=== PATIENT | male | born 1945 | race Caucasian/White ===

== ENCOUNTER 2018-03-01 08:45 | Day surgery (SDC) | payer MEDICARE ==
[~2018-03-01] VITALS: Ht 167.6 cm; Wt 104.3 kg
--- NOTE | ~2018-03-01 | OR ---
[facility] [address], [place] [address] Draft DATE OF OPERATION: 03/01/2018 SURGEON: Austyn Arana MD PREOPERATIVE DIAGNOSIS: Vocal cord lesions. POSTOPERATIVE DIAGNOSIS: Vocal cord lesions. PROCEDURE: Direct laryngoscopy, biopsy of vocal cord lesions. ANESTHESIA: General orotracheal, TRAIN DISPATCHER Griffin. PREOPERATIVE HISTORY: Mr. 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 He was taken to the operating for the above-mentioned procedure. OPERATIVE PROCEDURE AND FINDINGS: After informed consent, the patient was taken to the operating room, placed in supine position, where general orotracheal anesthesia was induced. The patient and procedure were verified. The patient was repositioned. Anterior commissure laryngoscope was used to visualize the hypopharynx and larynx. Everything appeared normal except for some very thin whitish material in the left anterior vocal cord up on to the ventricle. 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 Small mini cup biopsy forceps were used to biopsy both these lesions several pieces basically stripping the anterior lesion. These lesions were then sent to pathology separately in formalin, labeled left anterior and right posterior vocal cord lesions. Bleeding was minimal, stopped afterwards. Pharynx was suctioned clear of blood and secretions. The patient was then awakened, extubated, and transported to recovery room in good condition. COMPLICATIONS: No complications. BLOOD LOSS: Minimal. PATIENT NAME: TRES JURADO OPERATIVE REPORT DATE OF : 45 REPORT #: [id number] PHYSICIAN: AUSTYN ARANA MD PCP: NEYMAR KRISHNAN MD REPORT IS CONFIDENTIAL AND NOT TO BE RELEASED WITHOUT AUTHORIZATION [address] [place], [place] [address] Draft SPECIMEN: To pathology. DRAINS: No drains. Austyn Arana MD GC/JEROME /[id number] Copies: ~ PATIENT NAME: TRES JURADO OPERATIVE REPORT DATE OF : 45 REPORT #: [id number] PHYSICIAN: AUSTYN ARANA MD PCP: NEYMAR KRISHNAN MD REPORT IS CONFIDENTIAL AND NOT TO BE RELEASED WITHOUT AUTHORIZATION
[~2018-03-01 08:45] MED LIST: ALPRAZOLAM2 MG PO; ASPIR-LOW81 MG PO; COREG3.125 MG; COUMADIN1 MG PO; COUMADIN5 MG PO; DOXAZOSIN MESYLA2 MG PO; ENTRESTO 97 MG1 EACH PO; FLOMAX0.4 MG PO; FUROSEMIDE80 MG PO; LEVOTHYROXINE25 MCG PO; LIPITOR40 MG PO; NITROSTAT0.4 MG SL; NORCO 7.5-3251 EACH PO; PEPCID40 MG PO; POTASSIUM CHLO20 ME2 PO; QUINAPRIL HCL40 MG PO; SPIRIVA18 MCG INH; SYMBICORT 16010.2 GM INH; TOPROL XL50 MG PO; VENTOLIN HFA18 GM INH; WARFARIN SODIUM3 MG PO; ZYRTEC10 MG PO
--- NOTE | 2018-03-01 11:00 | NUR ---
PATIENT TO SURGERY.
--- NOTE | 2018-03-01 11:49 | NUR ---
03/01/18 1149 Isabela Hector 1134 PT ARRIVED NONAROUSABLE WITH ORAL AIRWAY IN PLACE. RESP EVEN AND UNLABORED. A-FIB AND IRREGULAR HEART RYTHUM PT BASELINE PER STORAGE BATTERY CHARGER. 1137 PT COUGHING AND REACTIVE TO TICTILE STIMULI, PT FOLLOWED COMMANDS TO OPEN MOUTH AND ORAL AIRWAY WAS REMOVED. SUCTION USED TO SUCTION OUT SMALL AMOUT OF DRAINAGE. 1140 PT DENIES NAUSEA AND PAIN, PT BACK TO SLEEP. 1148 PT ENCOURAGED TO DEEP BREATH AND COUGH. PT ASLEEP OFF AND ON, RESP EVEN AND UNLABORED.
--- NOTE | 2018-03-01 12:12 | NUR ---
PATIENT RETURNED TO DAY SURGERY. PATIENT IS AWAKE, DENIES PAIN OR NAUSEA, SIPPING ON WATER. SPOUSE IN ROOM WITH PATIENT. PATIENT IS SALINE LOCKED.
--- NOTE | 2018-03-01 12:56 | NUR ---
PATIENT DOING WELL, TOLERATING PO, NO PAIN OR NAUSEA. RIGHT WRIST SALINE LOCK D/C'D WITH CATHETER INTACT. DISCHARGE VITALS ARE STABLE, D/C INSTRUCTIONS GIVEN.
== END 2018-03-01 13:20 | disposition home or self-care (01) ==
LOC: OPS 08:45 → DS 08:45 → OPS 10:45
PROVIDERS: Otolaryngology
PROC: 0CBV8ZX Excision of Left Vocal Cord, Via Natural or Artificial Opening Endoscopic, Diagnostic (ICD-10-PCS; principal; 2018-03-01 10:45)
PROC: 0CBT8ZX Excision of Right Vocal Cord, Via Natural or Artificial Opening Endoscopic, Diagnostic (ICD-10-PCS; 2018-03-01 10:45)
DX: J37.0 Chronic laryngitis (principal); I25.10 Atherosclerotic heart disease of native coronary artery without angina pectoris; E78.00 Pure hypercholesterolemia, unspecified; I25.2 Old myocardial infarction; J44.9 Chronic obstructive pulmonary disease, unspecified; H91.90 Unspecified hearing loss, unspecified ear; Z95.5 Presence of coronary angioplasty implant and graft; Z88.8 Allergy status to other drugs, medicaments and biological substances; Z95.810 Presence of automatic (implantable) cardiac defibrillator; Z79.82 Long term (current) use of aspirin; Z79.899 Other long term (current) drug therapy
CPT/HCPCS: 71045; J0330; J1100; J2405; J2704; J2765; J3010; J7120